=== PATIENT | female | born 1955 | race Caucasian/White ===

== ENCOUNTER 2016-08-20 09:13 | Emergency (ER) | payer OTHER ==
[2016-12-21] MEDS ORDERED: FLUOXETINE HCL10 MG PO (00:43)
[2016-12-21] MEDS ORDERED: NORCO 5-325 TA1 EACH PO (00:44)
[2016-12-21] MEDS ORDERED: NEURONTIN 300300 MG PO (00:44)
[2016-12-21] MEDS ORDERED: ELAVIL 50 MG TA50 MG PO (00:45)
[2016-12-21] MEDS ORDERED: ADVAIR 500-501 EACH INH (00:45)
[2016-12-21] MEDS ORDERED: ZESTORETIC 20-1 EACH PO (00:46)
[2016-12-21] MEDS ORDERED: CYCLOBENZAPRINE10 MG PO (00:46)
[2016-12-21] MEDS ORDERED: CRESTOR20 MG PO (14:51)
[2016-12-21] MEDS ORDERED: ASPIRIN81 MG PO (14:55)
[2016-12-21] MEDS ORDERED: CHANTIX1 EACH PO (14:57)
[2016-12-21] MEDS ORDERED: PROTONIX40 MG PO (14:58)
== END 2016-08-20 12:25 | disposition home or self-care (01) ==
LOC: ER1 09:13
DX: S80.02XA Contusion of left knee, initial encounter (principal); F17.210 Nicotine dependence, cigarettes, uncomplicated; W01.0XXA Fall on same level from slipping, tripping and stumbling without subsequent striking against object, initial encounter; Y92.009 Unspecified place in unspecified non-institutional (private) residence as the place of occurrence of the external cause; Z88.5 Allergy status to narcotic agent; Z88.6 Allergy status to analgesic agent
CPT/HCPCS: 73564; 99283

== ENCOUNTER 2016-10-24 16:19 | Emergency (ER) | payer OTHER ==
[2016-12-21] MEDS ORDERED: FLUOXETINE HCL10 MG PO (00:43)
[2016-12-21] MEDS ORDERED: NORCO 5-325 TA1 EACH PO (00:44)
[2016-12-21] MEDS ORDERED: NEURONTIN 300300 MG PO (00:44)
[2016-12-21] MEDS ORDERED: ELAVIL 50 MG TA50 MG PO (00:45)
[2016-12-21] MEDS ORDERED: ADVAIR 500-501 EACH INH (00:45)
[2016-12-21] MEDS ORDERED: ZESTORETIC 20-1 EACH PO (00:46)
[2016-12-21] MEDS ORDERED: CYCLOBENZAPRINE10 MG PO (00:46)
[2016-12-21] MEDS ORDERED: CRESTOR20 MG PO (14:51)
[2016-12-21] MEDS ORDERED: ASPIRIN81 MG PO (14:55)
[2016-12-21] MEDS ORDERED: CHANTIX1 EACH PO (14:57)
[2016-12-21] MEDS ORDERED: PROTONIX40 MG PO (14:58)
== END 2016-10-24 17:37 | disposition home or self-care (01) ==
LOC: ER1 16:19
DX: M54.2 Cervicalgia (principal); G89.29 Other chronic pain; I10 Essential (primary) hypertension; J44.9 Chronic obstructive pulmonary disease, unspecified; F17.210 Nicotine dependence, cigarettes, uncomplicated; Z88.5 Allergy status to narcotic agent; Z88.6 Allergy status to analgesic agent; Z90.49 Acquired absence of other specified parts of digestive tract; Z79.899 Other long term (current) drug therapy; W18.30XA Fall on same level, unspecified, initial encounter
CPT/HCPCS: 96372; 99283; J2270